=== PATIENT | male | born 1975 | race Caucasian/White ===

== ENCOUNTER 2020-01-02 16:31 | Emergency (ER) | payer OTHER ==
[~2020-01-02] VITALS: Ht 182.9 cm; Wt 79.4 kg
[2020-01-02 16:37] VITALS: BP 144/91; Ht 182.9 cm; Wt 79.4 kg
== END 2020-01-02 17:27 | disposition other institution (70) ==
LOC: ED 16:31
DX: Z02.89 Encounter for other administrative examinations (principal)